=== PATIENT | male | born 1955 | race Caucasian/White ===

== ENCOUNTER 2016-11-05 23:02 | Emergency (ER) | payer OTHER ==
--- NOTE | 2016-11-06 00:46 | ED NURSING NOTES ---
Clinical Report - Nurses [address] [address] [place] [address] 11/05/2016 23:03 Patient: JANA BARBOZA TRIAGE Triage time 2317 PM. Acuity: LEVEL 4. Chief Complaint: NECK PAIN. Alert. No acute distress. JOSE COMA SCORE: Jose Coma Scale: 15- eyes open spontaneously (4); best verbal response- oriented x 4 (5); best motor response- obeys commands (6). --23:22 Memo Luis R.N. 23:17 11/05/16. BP: 161/95. HR: 75. RR: 16. O2 saturation: 99%. Temp: 98.2 F. Pain level now: 07/09. --23:22 Memo Luis R.N. 23:24 11/05/16. BP: 139/85 taken on the left arm, via an automated monitor, while lying. Temp: 98.4 F (oral). --23:25 Memo Luis R.N. Weight: 99.7 kg stated. Height/Length: 71 inches Per Patient. BMI: 30.7. --23:23 Memo Luis R.N. Medications Lisinopril Oral. --23:19 Memo Luis R.N. Simvastatin Oral. --23:19 Memo Luis R.N. MetFORMIN HCl Oral. --23:20 Memo Luis R.N. Allergies No Known Drug Allergy. --23:20 Memo Luis R.N. History Arrived by private vehicle. Historian: patient. Accompanied by family. This started today. ( Patient presents to the ED with symptoms of left sided neck pain beginning this morning. Patient states that he was watching the Super Bowl at his son's house and had his neck turned to the right slightly while watching the game. Patient states that he woke up this morning with pain on the left side of his neck. Patient denies any other trauma to his neck.). No history of recent trauma. 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 SOCIAL HX: Smoker- current status unknown (vaping). Occasional alcohol use. History of drug use. (no). FALL RISK ASSESSMENT: Fall risk assessment completed. No fall risk identified. NUTRITIONAL RISK ASSESSMENT: The nutritional risk assessment revealed no deficiencies. FUNCTIONAL ASSESSMENT: Functional assessment: no impairments noted. LEARNING NEEDS ASSESSMENT: The learning needs assessment revealed no barriers. SKIN INTEGRITY ASSESSMENT: Skin integrity risk assessment completed. No skin integrity risk identified. --23:22 Memo Luis R.N. PROBLEMS: Hypertension. Diabetes Insipidus. --23:21 Memo Luis R.N. Interventions To treatment room. --23:22 Memo Luis R.N. PHYSICAL ASSESSMENT Ambulatory to room. GENERAL / NEURO / PSYCH: Alert. Oriented X 4. Appears in no acute distress. RESPIRATORY: Respirations not labored. Chest nontender. Breath sounds within normal limits. CVS: Normal heart rate and rhythm. Capillary refill less than 2 seconds. GI / : Abdomen soft and nontender. Bowel sounds within normal limits. EXTREMITIES: Sensation intact in extremities. ROM of extremities within normal limits. BACK: Limited ROM of the back. Soft tissue tenderness in the left upper, mid and lower cervical paraspinous region. --00:59 Memo Luis R.N. NURSING PROGRESS NOTES 00:55 11/06/16. BP: 121/75. HR: 77. RR: 16. O2 saturation: 97%. --00:55 Memo Luis R.N. Reassurance given. --00:55 Memo Luis R.N. DISPOSITION / DISCHARGE Condition at departure: unchanged. The goals identified in the patient's plan of care were met. No learning barriers present. Reviewed medication(s) side effects, precautions, dosing and course information. Prescription(s) given to the patient. Patient verbalized understanding. Written instructions provided in [place]dean. The patient was discharged home and unaccompanied at time of discharge. He left the Emergency Department ambulatory and via private vehicle. Patient driving. FALL RISK ASSESSMENT: Fall risk assessment completed. No fall risk identified. --01:01 Memo Luis R.N. 01:00 11/06/16. BP: 133/67. HR: 79. RR: 16. O2 saturation: 96%. Temp: 98.2 F (oral). --01:01 Memo Luis R.N. Departure time: 0101 AM. --01:01 Memo Luis R.N. Locked/Released at 11/06/2016 1:01 by Memo Luis R.N.
--- NOTE | 2016-11-06 00:46 | ED NURSING NOTES ---
Clinical Report - Nurses [address] [address] [place] [address] 11/05/2016 23:03 Patient: JANA BARBOZA TRIAGE Triage time 2317 PM. Acuity: LEVEL 4. Chief Complaint: NECK PAIN. Alert. No acute distress. JOSE COMA SCORE: Jose Coma Scale: 15- eyes open spontaneously (4); best verbal response- oriented x 4 (5); best motor response- obeys commands (6). --23:22 Memo Luis R.N. 23:17 11/05/16. BP: 161/95. HR: 75. RR: 16. O2 saturation: 99%. Temp: 98.2 F. Pain level now: 07/09. --23:22 Memo Luis R.N. 23:24 11/05/16. BP: 139/85 taken on the left arm, via an automated monitor, while lying. Temp: 98.4 F (oral). --23:25 Memo Luis R.N. Weight: 99.7 kg stated. Height/Length: 71 inches Per Patient. BMI: 30.7. --23:23 Memo Luis R.N. Medications Lisinopril Oral. --23:19 Memo Luis R.N. Simvastatin Oral. --23:19 Memo Luis R.N. MetFORMIN HCl Oral. --23:20 Memo Luis R.N. Allergies No Known Drug Allergy. --23:20 Memo Luis R.N. History Arrived by private vehicle. Historian: patient. Accompanied by family. This started today. ( Patient presents to the ED with symptoms of left sided neck pain beginning this morning. Patient states that he was watching the Super Bowl at his son's house and had his neck turned to the right slightly while watching the game. Patient states that he woke up this morning with pain on the left side of his neck. Patient denies any other trauma to his neck.). No history of recent trauma. 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 SOCIAL HX: Smoker- current status unknown (vaping). Occasional alcohol use. History of drug use. (no). FALL RISK ASSESSMENT: Fall risk assessment completed. No fall risk identified. NUTRITIONAL RISK ASSESSMENT: The nutritional risk assessment revealed no deficiencies. FUNCTIONAL ASSESSMENT: Functional assessment: no impairments noted. LEARNING NEEDS ASSESSMENT: The learning needs assessment revealed no barriers. SKIN INTEGRITY ASSESSMENT: Skin integrity risk assessment completed. No skin integrity risk identified. --23:22 Memo Luis R.N. PROBLEMS: Hypertension. Diabetes Insipidus. --23:21 Memo Luis R.N. Interventions To treatment room. --23:22 Memo Luis R.N. PHYSICAL ASSESSMENT Ambulatory to room. GENERAL / NEURO / PSYCH: Alert. Oriented X 4. Appears in no acute distress. RESPIRATORY: Respirations not labored. Chest nontender. Breath sounds within normal limits. CVS: Normal heart rate and rhythm. Capillary refill less than 2 seconds. GI / : Abdomen soft and nontender. Bowel sounds within normal limits. EXTREMITIES: Sensation intact in extremities. ROM of extremities within normal limits. BACK: Limited ROM of the back. Soft tissue tenderness in the left upper, mid and lower cervical paraspinous region. --00:59 Memo Luis R.N. NURSING PROGRESS NOTES 00:55 11/06/16. BP: 121/75. HR: 77. RR: 16. O2 saturation: 97%. --00:55 Memo Luis R.N. Reassurance given. --00:55 Memo Luis R.N. DISPOSITION / DISCHARGE Condition at departure: unchanged. The goals identified in the patient's plan of care were met. No learning barriers present. Reviewed medication(s) side effects, precautions, dosing and course information. Prescription(s) given to the patient. Patient verbalized understanding. Written instructions provided in Gabonese. The patient was discharged home and unaccompanied at time of discharge. He left the Emergency Department ambulatory and via private vehicle. Patient driving. FALL RISK ASSESSMENT: Fall risk assessment completed. No fall risk identified. --01:01 Memo Luis R.N. 01:00 11/06/16. BP: 133/67. HR: 79. RR: 16. O2 saturation: 96%. Temp: 98.2 F (oral). --01:01 Memo Luis R.N. Departure time: 0101 AM. --01:01 Memo Luis R.N. Locked/Released at 11/06/2016 1:01 by Memo Luis R.N.
--- NOTE | 2016-11-06 00:46 | ED CLINICAL REPORT ---
Clinical Report - Physicians/Mid Levels [facility] [address] [place] [address] 11/05/2016 23:03 Patient: JANA BARBOZA Time Seen: 23:22. Arrived- By private vehicle. Historian- patient. HISTORY OF PRESENT ILLNESS Chief Complaint: NECK PAIN. Onset was yesterday and it is still present. It was gradual in onset and has been waxing/waning. It is described as being moderate in degree and in the area of the left side of the cervical spine and radiating. The quality is noted to be "pain". No bladder dysfunction, bowel dysfunction, sensory loss or motor loss. Additional history - Patient presents to the ED with symptoms of left sided neck pain beginning this morning. Patient states that he was watching the Super Bowl at his son's house and had his neck turned to the right slightly while watching the game. Patient states that he woke up this morning with pain on the left side of his neck. Patient denies any other trauma to his neck. Patient notes the possibility of an injury but denies injury to the head or chest. Mechanism of injury- he was turning. Occurred at a relative's house. No other injury. Similar symptoms previously: None. Recent medical care: Not recently seen/assessed. REVIEW OF SYSTEMS No fever, chills, headache, sore throat or cough. No difficulty breathing, chest pain, skin rash, abdominal pain or nausea. No vomiting, diarrhea, black stools, difficulty with urination or urinary frequency. No hematuria or bloody stools. PAST HISTORY See nurses notes. Hypertension. Type II diabetes mellitus treated with oral med. Hyperlipidemia. Medications: MetFORMIN HCl Oral. Simvastatin Oral. Lisinopril Oral. Allergies: No Known Drug Allergy. SOCIAL HISTORY Smoker- current status unknown ("vapes"). Occasional alcohol use. No drug use. ADDITIONAL NOTES The nursing notes have been reviewed. PHYSICAL EXAM Vital Signs: 11/05/2016 23:17 BP: 161/95. HR: 75. RR: 16. O2 saturation: 99%. Temp: 98.2 F. Pain level now: 07/09. Appearance: Alert. Patient in mild distress. HEENT: Normal external inspection. Eyes: Pupils equal, round and reactive to light. ENT: Pharynx normal. Neck: Normal inspection. CVS: Normal heart rate and rhythm. Heart sounds normal. Pulses normal. Respiratory: No respiratory distress. Breath sounds normal. Abdomen: Normal inspection. Soft and nontender. No mass. Back: Normal inspection. No tenderness. Skin: Skin warm and dry. Normal skin color. No rash. Normal skin turgor. Extremities: Extremities exhibit normal ROM. Extremities nontender. Neuro: Oriented X 3. Mood/affect normal. No motor deficit. No sensory deficit. Reflexes normal. LABS, X-RAYS, AND EKG C-Spine X-rays: No acute findings. Reversal of the normal cervical lordosis. Degenerative joint disease. No fracture or subluxation. (moderate DDD). Views: 3 view C-spine series. Technique: good. The X-rays were interpreted contemporaneously by me. PROGRESS AND PROCEDURES Course of Care: Clear muscular tenderness without neuro deficits. Has had intermittent, similar neck / back pain. X-rays confirm ddd / djd. Patient/family counseled. Disposition: Discharged. Condition: stable and improved. CLINICAL IMPRESSION Acute nontraumatic thoracic back pain associated with muscle strain. (left trapezius muscle). INSTRUCTIONS Apply ice. Rest. Do not work for three days. (Gentle range of motion. Sleep with your neck in neutral spinal position - everything lined up on your spine). Warnings: CONTROLLED SUBSTANCE WARNINGS. GENERAL WARNINGS: Return or contact your physician immediately if your condition worsens or changes unexpectedly, if not improving as expected, or if other problems arise. Your Current Medications: CONTINUE TAKING THE FOLLOWING MEDICATIONS: Lisinopril Oral. MetFORMIN HCl Oral. Simvastatin Oral. Prescription Medications: Hydrocodone/APAP 5mg / 325mg: take 1-2 orally every 8 hours as needed for pain. Dispense ten (10). No refill. Ibuprofen 600mg tablets: take 1 tablet orally every 8 hours as needed for pain. Dispense thirty (30). No refills. Flexeril 10 mg: Take 1 orally every 8 hours as needed for muscle spasm. Dispense twenty (20). No refills. Substitution is permissible. Follow-up: Follow up with your doctor Raúl in about two days. (Electronically signed by Reuben Arroyo DO 11/06/2016 4:47)
--- NOTE | 2016-11-06 00:46 | ED ORDER SUMMARY ---
..... Patient: JANA BARBOZA OrderSheet [facility] VisitID: [id number] [address] [place] [address] 61y, M Registration Date/Time: 11/05/2016 ORDER SHEET Weight: 99.7 kg (stated) Allergies: No Known Drug Allergy GENERAL ORDERS: Cervical Spine 2 or 3V Urgent (23:26 11/05/2016 Timmy INMAN) ([facility] 23:30 Ron) (23:40 Larisaranjith) MEDICATION ORDERS: IV FLUIDS: ORDER SHEET NOTES: [Electronically signed by Memo Luis R.N. (01:01 11/06/2016)] [Electronically signed by Reuben Arroyo DO (04:47 11/06/2016)] [Electronically locked/signed by Memo Luis R.N. (01:01 11/06/2016)]
--- NOTE | 2016-11-06 00:46 | ED ORDER SUMMARY ---
..... Patient: JANA BARBOZA OrderSheet [facility] VisitID: [id number] [address] [place] [address] 61y, M Registration Date/Time: 11/05/2016 ORDER SHEET Weight: 99.7 kg (stated) Allergies: No Known Drug Allergy GENERAL ORDERS: Cervical Spine 2 or 3V Urgent (23:26 11/05/2016 Timmy INMAN) ([facility] 23:30 Ron) (23:40 Larisaranjith) MEDICATION ORDERS: IV FLUIDS: ORDER SHEET NOTES: [Electronically signed by Memo Luis R.N. (01:01 11/06/2016)] [Electronically signed by Reuben Arroyo DO (04:47 11/06/2016)] [Electronically locked/signed by Memo Luis R.N. (01:01 11/06/2016)]
--- NOTE | 2016-11-06 04:47 | ED MED RECONCILIATION SUMMARY ---
Patient: JANA BARBOZA Medication Reconciliation Report [facility] VisitID: [id number] [address] [place] [address] 61y, M Registration Date/Time: 11/05/2016 Weight: 99.7 kg Height/Length: 71 in. BMI: 30.7 ALLERGIES: No Known Drug Allergy The patient's Home Medications are listed below: CONTINUE TAKING THE FOLLOWING MEDICATIONS: Lisinopril Oral MetFORMIN HCl Oral Simvastatin Oral The source(s) of the original Home Medication information: Not obtained. The following Medications were given to the patient in the Emergency Department: None. The following Medications were prescribed to the patient: Hydrocodone/APAP 5mg / 325mg: take 1-2 orally every 8 hours as needed for pain. Dispense ten (10). No refill. -- Reuben Arroyo DO Ibuprofen 600mg tablets: take 1 tablet orally every 8 hours as needed for pain. Dispense thirty (30). No refills. -- Reuben Arroyo DO Flexeril 10 mg: Take 1 orally every 8 hours as needed for muscle spasm. Dispense twenty (20). No refills. Substitution is permissible. -- Reuben Arroyo DO
--- NOTE | 2016-11-06 04:47 | ED MED RECONCILIATION SUMMARY ---
Patient: JANA BARBOZA Medication Reconciliation Report [facility] VisitID: [id number] [address] [place] [address] 61y, M Registration Date/Time: 11/05/2016 Weight: 99.7 kg Height/Length: 71 in. BMI: 30.7 ALLERGIES: No Known Drug Allergy The patient's Home Medications are listed below: CONTINUE TAKING THE FOLLOWING MEDICATIONS: Lisinopril Oral MetFORMIN HCl Oral Simvastatin Oral The source(s) of the original Home Medication information: Not obtained. The following Medications were given to the patient in the Emergency Department: None. The following Medications were prescribed to the patient: Hydrocodone/APAP 5mg / 325mg: take 1-2 orally every 8 hours as needed for pain. Dispense ten (10). No refill. -- Reuben Arroyo DO Ibuprofen 600mg tablets: take 1 tablet orally every 8 hours as needed for pain. Dispense thirty (30). No refills. -- Reuben Arroyo DO Flexeril 10 mg: Take 1 orally every 8 hours as needed for muscle spasm. Dispense twenty (20). No refills. Substitution is permissible. -- Reuben Arroyo DO
--- NOTE | 2016-11-06 04:47 | ED DISCHARGE INSTRUCTIONS ---
Patient: JANA BARBOZA General Instructions [facility] VisitID: [id number] [place] [address] 61y, M Registration Date/Time: 11/05/2016 Acute nontraumatic thoracic back pain associated with muscle strain. (left trapezius muscle). INSTRUCTIONS Apply ice. Rest. Do not work for three days. (Gentle range of motion. Sleep with your neck in neutral spinal position - everything lined up on your spine). Warnings: CONTROLLED SUBSTANCE WARNINGS. GENERAL WARNINGS: Return or contact your physician immediately if your condition worsens or changes unexpectedly, if not improving as expected, or if other problems arise. Your Current Medications: CONTINUE TAKING THE FOLLOWING MEDICATIONS: Lisinopril Oral. MetFORMIN HCl Oral. Simvastatin Oral. Prescription Medications: Hydrocodone/APAP 5mg / 325mg: take 1-2 orally every 8 hours as needed for pain. Dispense ten (10). No refill. Ibuprofen 600mg tablets: take 1 tablet orally every 8 hours as needed for pain. Dispense thirty (30). No refills. Flexeril 10 mg: Take 1 orally every 8 hours as needed for muscle spasm. Dispense twenty (20). No refills. Substitution is permissible. Follow-up: Follow up with your doctor Raúl in about two days. ADDITIONAL INFORMATION Back Pain [Acute Or Chronic] Back pain is usually caused by an injury to the muscles or ligaments of the spine. Sometimes the disks that separate each bone in the spine may bulge and cause pain by pressing on a nearby nerve. Back pain may also appear after a sudden twisting/bending force (such as in a car accident), after a simple awkward movement, or lifting something heavy with poor body positioning. In either case, muscle spasm is often present and adds to the pain. Acute back pain usually gets better in one to two weeks. Back pain related to disk disease, arthritis in the spinal joints or spinal stenosis (narrowing of the spinal canal) can become chronic and last for months or years. Unless you had a physical injury (for example, a car accident or fall) X-rays are usually not ordered for the initial evaluation of back pain. If pain continues and does not respond to medical treatment, x-rays and other tests may be performed at a later time. Home Care: You may need to stay in bed the first few days. But, as soon as possible, begin sitting or walking to avoid problems with prolonged bed rest (muscle weakness, worsening back stiffness and pain, blood clots in the legs). When in bed, try to find a position of comfort. A firm mattress is best. Try lying flat on your back with pillows under your knees. You can also try lying on your side with your knees bent up towards your chest and a pillow between your knees. Avoid prolonged sitting. This puts more stress on the lower back than standing or walking. During the first two days after injury, apply an ICE PACK to the painful area for 20 minutes every 2-4 hours. This will reduce swelling and pain. HEAT (hot shower, hot bath or heating pad) works well for muscle spasm. You can start with ice, then switch to heat after two days. Some patients feel best alternating ice and heat treatments. Use the one method that feels the best to you. You may use acetaminophen (Tylenol) or ibuprofen (Motrin, Advil) to control pain, unless another pain medicine was prescribed. [NOTE: If you have chronic liver or kidney disease or ever had a stomach ulcer or GI bleeding, talk with your doctor before using these medicines.] Be aware of safe lifting methods and do not lift anything over 15 pounds until all the pain is gone. Follow Up with your doctor or this facility if your symptoms do not start to improve after one week. Physical therapy may be needed. [NOTE: If X-rays were taken, they will be reviewed by a radiologist. You will be notified of any new findings that may affect your care.] Get Prompt Medical Attention if any of the following occur: Pain becomes worse or spreads to your legs Weakness or numbness in one or both legs Loss of bowel or bladder control Numbness in the groin or genital area Hydrocodone Bitartrate, Acetaminophen Oral tablet What is this medicine? ACETAMINOPHEN; HYDROCODONE (a set a ARACELIS manpreet fen; grace droe KOE done) is a pain reliever. It is used to treat mild to moderate pain. How should I use this medicine? Take this medicine by mouth. Swallow it with a full glass of water. Follow the directions on the prescription label. If the medicine upsets your stomach, take the medicine with food or milk. Do not take more than you are told to take. Talk to your microstrategy architect regarding the use of this medicine in children. This medicine is not approved for use in children. What side effects may I notice from receiving this medicine? Side effects that you should report to your doctor or health care transition coordinator as soon as possible: allergic reactions like skin rash, itching or hives, swelling of the face, lips, or tongue breathing problems confusion feeling faint or lightheaded, falls stomach pain yellowing of the eyes or skin Side effects that usually do not require medical attention (report to your doctor or health care transition coordinator if they continue or are bothersome): nausea, vomiting stomach upset What may interact with this medicine? alcohol antihistamines isoniazid medicines for depression, anxiety, or psychotic disturbances medicines for sleep muscle relaxants naltrexone narcotic medicines (opiates) for pain phenobarbital ritonavir tramadol What if I miss a dose? If you miss a dose, take it as soon as you can. If it is almost time for your next dose, take only that dose. Do not take double or extra doses. Where should I keep my medicine? Keep out of the reach of children. This medicine can be abused. Keep your medicine in a safe place to protect it from theft. Do not share this medicine with anyone. Selling or giving away this medicine is dangerous and against the law. Store at room temperature between 15 and 30 degrees C (59 and 86 degrees F). Protect from light. Keep container tightly closed. Throw away any unused medicine after the expiration date. Discard unused medicine and used packaging carefully. Pets and children can be harmed if they find used or lost packages. What should I tell my health care provider before I take this medicine? They need to know if you have any of these conditions: brain tumor Crohn's disease, inflammatory bowel disease, or ulcerative colitis drink more than 3 alcohol-containing drinks per day drug abuse or addiction head injury heart or circulation problems kidney disease or problems going to the bathroom liver disease lung disease, asthma, or breathing problems an unusual or allergic reaction to acetaminophen, hydrocodone, other opioid analgesics, other medicines, foods, dyes, or preservatives or trying to get breast-feeding What should I watch for while using this medicine? Tell your doctor or health care transition coordinator if your pain does not go away, if it gets worse, or if you have new or a different type of pain. You may develop tolerance to the medicine. Tolerance means that you will need a higher dose of the medicine for pain relief. Tolerance is normal and is expected if you take the medicine for a long time. Do not suddenly stop taking your medicine because you may develop a severe reaction. Your body becomes used to the medicine. This does NOT mean you are addicted. Addiction is a behavior related to getting and using a drug for a non-medical reason. If you have pain, you have a medical reason to take pain medicine. Your doctor will tell you how much medicine to take. If your doctor wants you to stop the medicine, the dose will be slowly lowered over time to avoid any side effects. You may get drowsy or dizzy when you first start taking the medicine or change doses. Do not drive, use machinery, or do anything that may be dangerous until you know how the medicine affects you. Stand or sit up slowly. There are different types of narcotic medicines (opiates) for pain. If you take more than one type at the same time, you may have more side effects. Give your health care provider a list of all medicines you use. Your doctor will tell you how much medicine to take. Do not take more medicine than directed. Call emergency for help if you have problems breathing. The medicine will cause constipation. Try to have a bowel movement at least every 2 to 3 days. If you do not have a bowel movement for 3 days, call your doctor or health care transition coordinator. Too much acetaminophen can be very dangerous. Do not take Tylenol (acetaminophen) or medicines that contain acetaminophen with this medicine. Many non-prescription medicines contain acetaminophen. Always read the labels carefully. Ibuprofen Oral tablet What is this medicine? IBUPROFEN (eye BYOO proe fen) is a non-steroidal anti-inflammatory drug (NSAID). It is used for dental pain, fever, headaches or migraines, osteoarthritis, rheumatoid arthritis, or painful monthly periods. It can also relieve minor aches and pains caused by a cold, flu, or sore throat. How should I use this medicine? Take this medicine by mouth with a glass of water. Follow the directions on the prescription label. Take this medicine with food if your stomach gets upset. Try to not lie down for at least 10 minutes after you take the medicine. Take your medicine at regular intervals. Do not take your medicine more often than directed. A special MedGuide will be given to you by the pharmacist with each prescription and refill. Be sure to read this information carefully each time. Talk to your microstrategy architect regarding the use of this medicine in children. Special care may be needed. What side effects may I notice from receiving this medicine? Side effects that you should report to your doctor or health care transition coordinator as soon as possible: allergic reactions like skin rash, itching or hives, swelling of the face, lips, or tongue black or bloody stools, blood in the urine or in vomit breathing problems changes in vision chest pain general ill feeling or flu-like symptoms nausea or vomiting redness, blistering, peeling or loosening of the skin, including inside the mouth slurred speech or weakness on one side of the body stomach pain unexplained weight gain or swelling unusually weak or tired yellowing of eyes or skin Side effects that usually do not require medical attention (report to your doctor or health care transition coordinator if they continue or are bothersome): constipation or diarrhea dizziness gas or heartburn stomach upset What may interact with this medicine? Do not take this medicine with any of the following medications: cidofovir ketorolac methotrexate pemetrexed This medicine may also interact with the following medications: alcohol aspirin diuretics lithium other drugs for inflammation like prednisone warfarin What if I miss a dose? If you miss a dose, take it as soon as you can. If it is almost time for your next dose, take only that dose. Do not take double or extra doses. Where should I keep my medicine? Keep out of the reach of children. Store at room temperature between 15 and 30 degrees C (59 and 86 degrees F). Keep container tightly closed. Throw away any unused medicine after the expiration date. What should I tell my health care provider before I take this medicine? They need to know if you have any of these conditions: asthma cigarette smoker drink more than 3 alcohol containing drinks a day heart disease or circulation problems such as heart failure or leg edema (fluid retention) high blood pressure kidney disease liver disease stomach bleeding or ulcers an unusual or allergic reaction to ibuprofen, aspirin, other NSAIDS, other medicines, foods, dyes, or preservatives or trying to get breast-feeding What should I watch for while using this medicine? Tell your doctor or healthcare professional if your symptoms do not start to get better or if they get worse. This medicine does not prevent heart attack or stroke. In fact, this medicine may increase the chance of a heart attack or stroke. The chance may increase with longer use of this medicine and in people who have heart disease. If you take aspirin to prevent heart attack or stroke, talk with your doctor or health care transition coordinator. Do not take other medicines that contain aspirin, ibuprofen, or naproxen with this medicine. Side effects such as stomach upset, nausea, or ulcers may be more likely to occur. Many medicines available without a prescription should not be taken with this medicine. This medicine can cause ulcers and bleeding in the stomach and intestines at any time during treatment. Ulcers and bleeding can happen without warning symptoms and can cause . To reduce your risk, do not smoke cigarettes or drink alcohol while you are taking this medicine. You may get drowsy or dizzy. Do not drive, use machinery, or do anything that needs mental alertness until you know how this medicine affects you. Do not stand or sit up quickly, especially if you are an older patient. This reduces the risk of dizzy or fainting spells. This medicine can cause you to bleed more easily. Try to avoid damage to your teeth and gums when you brush or floss your teeth. Cyclobenzaprine Hydrochloride Oral tablet What is this medicine? CYCLOBENZAPRINE (sye kloe BELEN za preen) is a muscle relaxer. It is used to treat muscle pain, spasms, and stiffness. How should I use this medicine? Take this medicine by mouth with a glass of water. Follow the directions on the prescription label. If this medicine upsets your stomach, take it with food or milk. Take your medicine at regular intervals. Do not take it more often than directed. Talk to your microstrategy architect regarding the use of this medicine in children. Special care may be needed. What side effects may I notice from receiving this medicine? Side effects that you should report to your doctor or health care transition coordinator as soon as possible: allergic reactions like skin rash, itching or hives, swelling of the face, lips, or tongue chest pain fast heartbeat hallucinations seizures vomiting Side effects that usually do not require medical attention (report to your doctor or health care transition coordinator if they continue or are bothersome): headache What may interact with this medicine? Do not take this medicine with any of the following medications: cisapride droperidol flecainide grepafloxacin halofantrine levomethadyl MAOIs like Carbex, Eldepryl, Marplan, Nardil, and Parnate nilotinib pimozide probucol sertindole This medicine may also interact with the following medications: abarelix alcohol contrast dyes dolasetron guanethidine medicines for cancer medicines for depression, anxiety, or psychotic disturbances medicines to treat an irregular heartbeat medicines used for sleep or numbness during surgery or procedure methadone octreotide ondansetron palonosetron phenothiazines like chlorpromazine, mesoridazine, prochlorperazine, thioridazine some medicines for infection like alfuzosin, chloroquine, clarithromycin, levofloxacin, mefloquine, pentamidine, troleandomycin tramadol vardenafil What if I miss a dose? If you miss a dose, take it as soon as you can. If it is almost time for your next dose, take only that dose. Do not take double or extra doses. Where should I keep my medicine? Keep out of the reach of children. Store at room temperature between 15 and 30 degrees C (59 and 86 degrees F). Keep container tightly closed. Throw away any unused medicine after the expiration date. What should I tell my health care provider before I take this medicine? They need to know if you have any of these conditions: heart disease, irregular heartbeat, or previous heart attack liver disease thyroid problem an unusual or allergic reaction to cyclobenzaprine, tricyclic antidepressants, lactose, other medicines, foods, dyes, or preservatives or trying to get breast-feeding What should I watch for while using this medicine? Check with your doctor or health care transition coordinator if your condition does not improve within 1 to 3 weeks. You may get drowsy or dizzy when you first start taking the medicine or change doses. Do not drive, use machinery, or do anything that may be dangerous until you know how the medicine affects you. Stand or sit up slowly. Your mouth may get dry. Drinking water, chewing sugarless gum, or sucking on hard candy may help. You have been given the following additional information: Back Pain (Acute Or Chronic) Hydrocodone Bitartrate, Acetaminophen Oral tablet Ibuprofen Oral tablet Cyclobenzaprine Hydrochloride Oral tablet Rest. Do not work for three days. (Electronically signed by Reuben Arroyo DO 11/06/2016 4:47)
--- NOTE | 2016-11-06 04:47 | ED MAR SUMMARY ---
..... Medication Administration Record [facility] [address] [place], [place] [id number] Patient: JANA BARBOZA Visit ID: [id number] 61y, M Weight: 99.7 kg Height/Length: 71 in BMI: 30.7 ALLERGIES: No Known Drug Allergy
--- NOTE | 2016-11-06 04:47 | ED MAR SUMMARY ---
..... Medication Administration Record [facility] [address] [place], [place] [id number] Patient: JANA BARBOZA Visit ID: [id number] 61y, M Weight: 99.7 kg Height/Length: 71 in BMI: 30.7 ALLERGIES: No Known Drug Allergy
--- NOTE | 2016-11-06 05:58 | DIAGNOSTIC IMAGING REPORT ---
PROCEDURE: XR CERVICAL SPINE 2 OR 3 VIEW INDICATION: NECK PAIN TECHNIQUE: Three views. COMPARISON: None. FINDINGS: There is moderate to marked disc space narrowing and degenerative changes of the lower cervical spine with moderate facet disease. Findings are associated with straightening and reversal of the upper cervical lordosis. No evidence of an acute process or fracture. IMPRESSION: 1. Moderate to marked degenerative changes of the cervical spine.
== END 2016-11-06 01:01 | disposition home or self-care (01) ==
LOC: ED SRH 23:02
DX: M54.6 Pain in thoracic spine (principal); I10 Essential (primary) hypertension; E11.9 Type 2 diabetes mellitus without complications; Z79.84 Long term (current) use of oral hypoglycemic drugs; Z79.899 Other long term (current) drug therapy